=== PATIENT | male | born 1990 | race African-American/Black ===

== ENCOUNTER 2023-09-15 00:31 | Day surgery (SDC) | payer SELFPAY ==
[~2023-09-15] VITALS: Ht 172.7 cm; Wt 73.0 kg
[2023-09-15 00:42] VITALS: O2SAT 99
[2023-09-15 01:59] LABS: BASOPHILS % 0.5 % (0.0-2.0); EOSINOPHILS % 2.2 % (0.0-5.0); HEMOGLOBIN. 15.5 g/dL (14.0-18.0); LYMPHOCYTES % 12.5 % (20.0-50.0); MEAN CORPUSCULAR HEMOGLOBIN 28.6 pg (28.0-32.0); MEAN CORPUSCULAR HGB CONC 33.1 g/dL (31.0-37.0); MEAN CORPUSCULAR VOLUME 86.5 fL (80.0-94.0); MEAN PLATELET VOLUME 6.8 fl (7.4-10.4); MONOCYTES % 3.7 % (2.0-8.0); NEUTROPHILS % 81.1 % (40.0-76.0); PLATELET 304 x1000/uL (130-400); RED BLOOD CELL COUNT 5.43 mill/uL (4.7-6.1); RED CELL DISTRIBUTION WIDTH 14.6 % (11.6-14.6); WHITE BLOOD COUNT 18.4 x1000/uL (4.5-11.0)
[2023-09-15 02:13] LABS: CHLORIDE 105 mEq/L (98-107); POTASSIUM 4.2 mEq/L (3.5-5.1); SODIUM 142 mEq/L (136-145)
[2023-09-15 02:15] LABS: CALCIUM 9.8 mg/dL (8.7-10.4)
[2023-09-15 02:19] LABS: CREATININE 0.8 mg/dL (0.6-1.3)
[2023-09-15 02:21] LABS: ALBUMIN 4.9 g/dL (3.2-4.8)
[2023-09-15 02:22] LABS: BILIRUBIN TOTAL 0.5 mg/dL (0.1-1.0)
[2023-09-15] MEDS: ONDANSETRON 4MG ODT PO STA (03:06)
[2023-09-15] MEDS: KETOROLAC 15MG/ML VIAL IM ONE (03:06)
[2023-09-15] MEDS: KETOROLAC 15MG/ML VIAL IM NR (03:07)
[2023-09-15] MEDS: ONDANSETRON 4MG ODT PO NR (03:07)
[2023-09-15 04:14] LABS: CARBON DIOXIDE 23 mEq/L (21-32); GLUCOSE 216 mg/dL (70-105); UREA NITROGEN BLOOD 19 mg/dL (9-23)
[2023-09-15 04:15] LABS: ALANINE AMINOTRANSFERASE 24 IU/L (10-49); ASPARTATE AMINOTRANSFERASE 23 IU/L (<34)
[2023-09-15] MEDS ORDERED: KETOROLAC 15MG/ML VIAL IV PRN (07:30)
[2023-09-15] MEDS ORDERED: ONDANSETRON HCL 4MG/2ML INJ IV PRN ×2 (07:30→11:30)
[2023-09-15] MEDS ORDERED: ACETAMINOPHEN 650MG SUPP PR PRN ×2 (07:30)
[2023-09-15] MEDS ORDERED: NITROGLYCERIN 0.4MG TABLET SL SL PRN (07:30)
[2023-09-15] MEDS ORDERED: IPRATROPIUM/ALBUTEROL 0.5-3(2.5)MG/3ML NEB NEB PRN (07:30)
[2023-09-15] MEDS ORDERED: LORAZEPAM 2MG/ML INJ IV PRN (07:30)
[2023-09-15] MEDS: PIPERACILLIN/TAZO 3.375G/50ML 50 ML IV SCH (08:00)
[2023-09-15 08:20] VITALS: TEMP 36.83628
[2023-09-15 08:22] LABS: IRON 63 ug/dL (65-175)
[2023-09-15 08:24] VITALS: TEMP 98.3
[2023-09-15 08:25] LABS: TOTAL IRON BINDING CAPACITY 274 ug/dl (250-425)
[2023-09-15 08:30] LABS: THYROID STIMULATING HORMONE 0.96 uIU/mL (0.55-4.78)
[2023-09-15 08:40] LABS: VITAMIN B12 SERUM 644 pg/mL (211-911)
[2023-09-15 08:43] LABS: FOLIC ACID (FOLATE) SERUM > 20.00 ng/mL (>5.38)
[2023-09-15] MEDS: ENOXAPARIN 40MG/0.4ML SYR SUBCUT SCH (08:57)
[2023-09-15] MEDS: DEXT 5%/LACTATED RINGERS 1,000 ML IV SCH (08:58)
[2023-09-15] MEDS: PANTOPRAZOLE SODIUM 40 MG/VIAL IV SCH (09:09)
[2023-09-15] MEDS ORDERED: SKIN ADHESIVE 0.7 GM EA TOP ONE (10:12)
[2023-09-15] MEDS ORDERED: BUPIVACAINE HCL/PF 0.5% (5MG/ML) 10ML ONE (10:12)
[2023-09-15 10:46] VITALS: BP 118/70; PULSE 68; RESP 16; O2SAT 98
[2023-09-15] MEDS ORDERED: FENTANYL CITRATE/PF 50MCG/ML 2ML VIAL IV PRN (11:30)
[2023-09-15] MEDS ORDERED: HYDROMORPHONE HCL/PF 2MG/ML INJ IV PRN (11:30)
[2023-09-15] MEDS ORDERED: SODIUM CHLORIDE 0.9% 1,000 ML IV SCH (11:30)
[2023-09-15] MEDS ORDERED: ALBUTEROL 6.7GM HFA INHALER ONE (12:00)
[2023-09-15] MEDS ORDERED: FUROSEMIDE 40MG/4ML VIAL ONE (12:11)
== END 2023-09-15 16:00 | disposition home or self-care (01) ==
LOC: ER 00:31 → OR 12:25 → CANBEDREQ 09-16 02:30
PROVIDERS: ATTEND Surgery
DX: K42.0 Umbilical hernia with obstruction, without gangrene (principal); N20.1 Calculus of ureter; F12.90 Cannabis use, unspecified, uncomplicated; F17.200 Nicotine dependence, unspecified, uncomplicated; Z79.899 Other long term (current) drug therapy; Z98.890 Other specified postprocedural states
CPT/HCPCS: 49594; 80053; 82607; 82746; 83036; 84439; 83540; 83550; 83690; 84443; 85025; 36415; 74176; 76705; 99285; 96365; 96372; 96375; Q0162; J3490; J1650; J1940; J1885; J2470; J2543; J7120; C1781